=== PATIENT | male | born 1985 | race Caucasian/White ===

== ENCOUNTER 2018-07-17 12:52 | Emergency (ER) | payer SELFPAY ==
[2018-07-17] MEDS ORDERED: 0.9 % SODIUM CHLORIDE 1,000 ML BAG IV ONE ×2 (14:33→15:49)
[2018-07-17 14:48] LABS: URINE APPEARANCE CLEAR; URINE BILIRUBIN MODERATE (NEGATIVE); URINE BLOOD NEGATIVE (NEGATIVE); URINE COLOR YELLOW; URINE GLUCOSE (UA) NEGATIVE (NEGATIVE); URINE KETONE 15 mg/dL (NEGATIVE); URINE LEUKOCYTE ESTERASE NEGATIVE (NEGATIVE); URINE NITRITE NEGATIVE (NEGATIVE); URINE UROBILINOGEN 0.2 E.U./dL (0.20 - 1.00)
[2018-07-17 14:49] LABS: HEMOGLOBIN 15.7 gm/dl (14.0-18.0); MEAN CELL VOLUME 84.9 fl (81-97); MEAN CORPUSCULAR HGB CONC 34.1 g/dl (32-36); MEAN PLATELET VOLUME 9.1 fl (7.4-10.4); PLATELET COUNT 328 K/uL (130-400); RED BLOOD COUNT 5.42 M/uL (4.40-5.70); RED CELL DISTRIBUTION WIDTH 13.9 % (11.5-14.5); WHITE BLOOD COUNT W/O DIFF 8.3 K/uL (4.2-12.2)
[2018-07-17 15:00] LABS: PLATELET ESTIMATE NORMAL (NORMAL)
[2018-07-17 15:03] LABS: BLOOD UREA NITROGEN 8 mg/dL (6-20)
[2018-07-17 15:04] LABS: EST GLOMERULAR FILTRATION RATE > 60 mL/min; TOTAL PROTEIN 7.3 g/dL (6.6-8.7)
[2018-07-17 15:06] LABS: GLUCOSE,RANDOM 82 mg/dL (74-109)
[2018-07-17 15:09] LABS: ALB/GLOB RATIO 1.6 (1.1-1.8); ALBUMIN 4.5 g/dL (4.0-5.0); ALKALINE PHOSPHATASE 85 U/L (40-129); ALT/SGPT 24 U/L (<41); AST/SGOT 30 U/L (10.0-50.0)
[2018-07-17 15:38] LABS: STOOL FOR POLYS NO WBC'S OBSERVED (NO WBC'S)
[2018-07-17 15:52] LABS: CRYPTOSPORIDIUM PARVUM ANTIGEN NOT DETECTED (NOT DETECT); GIARDIA LAMBLIA ANTIGEN DETECTED (NOT DETECT); ROTOVIRUS NOT DETECTED (NOT DETECT)
--- NOTE | 2018-07-17 16:17 | Emergency Department Record ---
History of Present Illness - General Chief complaint: Nausea, Vomiting, Diarrhea Stated complaint: DIARRHEA X7DAYS,VOMITING Time Seen by Provider: 07/17/18 14:24 Source: Patient Mode of Arrival: Ambulatory Limitations: No limitations - History of Present Illness Initial comments: pt has had intractable diarrhea for 7days, like water the last 3 days., about 20 times a day. he vomited 2 days ago but has no nausea now. MD complaint: Diarrhea, Nausea, Vomiting Onset/Timin -: Days(s) Description of Diarrhea: Green, Water Associated Abdominal Pain: No Associated Symptoms: Loss of appetite, Nausea/vomiting, Weakness - Related Data Home Medications Medication Instructions Recorded Confirmed Last Taken Omeprazole [Prilosec] 20 mg PO DAILY 07/17/18 07/17/18 07/16/18 Previous Rx's Medication Instructions Recorded Metronidazole [Flagyl] 500 mg PO BID #20 tablet 07/17/18 Allergies Allergy/AdvReac Type Severity Reaction Status Date / Time No Known Drug Allergies Allergy Verified 07/17/18 13:25 Travel Screening - Travel/Exposure Within Last 30 Days Have you traveled within the last 30 days?: No - Travel/Exposure Within Last Year Have you traveled outside the [place] in the last year?: No - Additonal Travel Details Have you been exposed to anyone with a communicable illness?: No Review of Systems Reviewed: No additional complaints except as noted below Constitutional: Reports: As per HPI. Denies: Chills, Fever, Malaise, Night sweats, Weakness, Weight change Eyes: Reports: As per HPI. Denies: Eye discharge, Eye pain, Photophobia, Vision change ENT: Reports: As per HPI. Denies: Congestion, Dental pain, Ear pain, Epistaxis , Hearing loss, Throat pain Respiratory: Reports: As per HPI. Denies: Cough, Dyspnea, Hemoptysis, Stridor, Wheezes Cardiovascular: Reports: As per HPI. Denies: Arrhythmia, Chest pain, Dyspnea on exertion, Edema, Murmurs, Orthopnea, Palpitations, Paroxysmal nocturnal dyspnea, Rheumatic Fever, Syncope Endocrine: Reports: As per HPI. Denies: Fatigue, Heat or cold intolerance, Polydipsia, Polyuria Gastrointestinal: Reports: As per HPI. Denies: Abdominal pain, Constipation, Diarrhea, Hematemesis, Hematochezia, Melena, Nausea, Vomiting Genitourinary: Reports: As per HPI. Denies: Dysuria, Frequency, Hematuria, Incontinence, Retention, Testicular pain, Testicular mass, Urgency Musculoskeletal: Reports: As per HPI. Denies: Arthralgia, Back pain, Gout, Joint swelling, Myalgia, Neck pain Skin: Reports: As per HPI. Denies: Bruising, Change in color, Change in hair/ nails, Lesions, Pruritus, Rash Neurological: Reports: As per HPI. Denies: Abnormal gait, Confusion, Headache, Numbness, Paresthesias, Seizure, Tingling, Tremors, Vertigo, Weakness Psychiatric: Reports: As per HPI. Denies: Anxiety, Auditory hallucinations, Depression, Homicidal thoughts, Suicidal thoughts, Visual hallucinations Hematological/Lymphatic: Reports: As per HPI. Denies: Anemia, Blood Clots, Easy bleeding, Easy bruising, Swollen glands Past Medical History - SOCIAL HISTORY Smoking Status: Current every day smoker Alcohol Use: Heavy Alcohol Use Comment: 8-10 serving shots whiskey daily Drug Use: Occasional Drug Use Detail:: Marijuana - RESPIRATORY Hx Respiratory Disorders: Yes Hx Bronchitis: Yes - CARDIOVASCULAR Hx Cardio Disorders: No - NEURO Hx Neuro Disorders: No - GI Hx GI Disorders: Yes Hx Reflux: Yes - Hx Genitourinary Disorders: No - ENDOCRINE Hx Endocrine Disorders: No - MUSCULOSKELETAL Hx Musculoskeletal Disorders: No - PSYCH Hx Psych Problems: No - HEMATOLOGY/ONCOLOGY Hx Hematology/Oncology Disorders: No Family Medical History Any Significant Family History?: No Physical Exam - General General Appearance: Alert, Oriented x3, Cooperative, Mild distress - Head Head exam: Normal inspection - Eye Eye exam: Normal appearance, PERRL, EOMI Pupils: Normal accommodation - ENT ENT exam: Normal exam, Mucous membranes moist, Normal external ear exam, Normal orophraynx Ear exam: Normal external inspection. negative: External canal tenderness Nasal Exam: Normal inspection. negative: Discharge, Sinus tenderness Mouth exam: Normal external inspection, Tongue normal Teeth exam: Normal inspection. negative: Dental caries Throat exam: Normal inspection. negative: Tonsillar erythema, Tonsillar exudate - Neck Neck exam: Normal inspection, Full ROM. negative: Tenderness - Respiratory Respiratory exam: Normal lung sounds bilaterally. negative: Respiratory distress - Cardiovascular Cardiovascular Exam: Regular rate, Normal rhythm, Normal heart sounds - GI/Abdominal GI/Abdominal exam: Soft, Normal bowel sounds, Hyperactive bowel sounds. negative: Tenderness - Rectal Rectal exam: Deferred - exam: Deferred - Extremities Extremities exam: Normal inspection, Full ROM, Normal capillary refill. negative: Tenderness - Back Back exam: Reports: Normal inspection, Full ROM. Denies: Muscle spasm, Rash noted, Tenderness - Neurological Neurological exam: Alert, CN II-XII intact, Normal gait, Oriented X3 - Psychiatric Psychiatric exam: Normal affect, Normal mood - Skin Skin exam: Dry, Intact, Normal color, Warm Course Vital Signs 07/17/18 07/17/18 13:17 15:54 Temperature 97.6 F Pulse Rate 88 Pulse Rate [ 72 Pulse Ox Probe] Respiratory 16 16 Rate Blood Pressure 126/98 Blood Pressure 117/75 [Right Arm] Pulse Ox 94 L 99 Medical Decision Making - Lab Data Result diagrams: 07/17/18 14:30 07/17/18 14:30 Lab Results 07/17/18 07/17/18 07/17/18 Range/Units 14:30 14:30 14:30 WBC 8.3 (4.2-12.2) K/uL RBC 5.42 (4.40-5.70) M/uL Hgb 15.7 (14.0-18.0) gm/dl Hct 46.0 (42.0-52.0) % MCV 84.9 (81-97) fl MCH 29.0 (27-33) pg MCHC 34.1 (32-36) g/dl RDW 13.9 (11.5-14.5) % Plt Count 328 (130-400) K/uL MPV 9.1 (7.4-10.4) fl Neutrophils % 71.0 (47-80) % Eosinophils % Not Reportable Basophils % Not Reportable Lymphocytes 19.0 (16-45) % Monocytes 10.0 H (0-9) % Platelet Estimate Normal (NORMAL) RBC Morphology Normal Sodium 133 L (136-145) mmol/L Potassium 3.9 (3.4-4.5) mmol/L Chloride 90 L (98-107) mmol/L Carbon Dioxide 27.0 (22-29) mmol/L Anion Gap 16.0 (7-16) BUN 8 (6-20) mg/dL Creatinine 1.0 (0.7-1.2) mg/dL Estimated GFR > 60 mL/min Random Glucose 82 (74-109) mg/dL Calcium 8.9 (8.6-10.0) mg/dL Total Bilirubin 0.40 (0.2-1.0) mg/dL AST 30 (10.0-50.0) U/L ALT 24 (<41) U/L Alkaline Phosphatase 85 (40-129) U/L Total Protein 7.3 (6.6-8.7) g/dL Albumin 4.5 (4.0-5.0) g/dL Globulin 2.8 (1.4-4.8) gm/dL Albumin/Globulin Ratio 1.6 (1.1-1.8) Urine Color Yellow Urine Appearance Clear Urine pH 6.0 (5.0-8.0) Ur Specific Jeffrey 1.020 (1.002-1.030) Urine Protein 30 mg/dl H (NEGATIVE) Urine Glucose (UA) Negative (NEGATIVE) Urine Ketones 15 mg/dl H (NEGATIVE) Urine Blood Negative (NEGATIVE) Urine Nitrite Negative (NEGATIVE) Urine Bilirubin Moderate H (NEGATIVE) Urine Urobilinogen 0.2 (0.20 - 1.00) E.U./dL Ur Leukocyte Esterase Negative (NEGATIVE) Stool Occult Blood Negative (NEGATIVE) Stool for White Cells No wbc's observed (NO WBC'S) Rotavirus Antigen (NOT DETECT) Cryptosporid parvum Ag (NOT DETECT) Giardia lamblia Ag (NOT DETECT) 07/17/18 Range/Units 14:30 WBC (4.2-12.2) K/uL RBC (4.40-5.70) M/uL Hgb (14.0-18.0) gm/dl Hct (42.0-52.0) % MCV (81-97) fl MCH (27-33) pg MCHC (32-36) g/dl RDW (11.5-14.5) % Plt Count (130-400) K/uL MPV (7.4-10.4) fl Neutrophils % (47-80) % Eosinophils % Basophils % Lymphocytes (16-45) % Monocytes (0-9) % Platelet Estimate (NORMAL) RBC Morphology Sodium (136-145) mmol/L Potassium (3.4-4.5) mmol/L Chloride (98-107) mmol/L Carbon Dioxide (22-29) mmol/L Anion Gap (7-16) BUN (6-20) mg/dL Creatinine (0.7-1.2) mg/dL Estimated GFR mL/min Random Glucose (74-109) mg/dL Calcium (8.6-10.0) mg/dL Total Bilirubin (0.2-1.0) mg/dL AST (10.0-50.0) U/L ALT (<41) U/L Alkaline Phosphatase (40-129) U/L Total Protein (6.6-8.7) g/dL Albumin (4.0-5.0) g/dL Globulin (1.4-4.8) gm/dL Albumin/Globulin Ratio (1.1-1.8) Urine Color Urine Appearance Urine pH (5.0-8.0) Ur Specific Jeffrey (1.002-1.030) Urine Protein (NEGATIVE) Urine Glucose (UA) (NEGATIVE) Urine Ketones (NEGATIVE) Urine Blood (NEGATIVE) Urine Nitrite (NEGATIVE) Urine Bilirubin (NEGATIVE) Urine Urobilinogen (0.20 - 1.00) E.U./dL Ur Leukocyte Esterase (NEGATIVE) Stool Occult Blood (NEGATIVE) Stool for White Cells (NO WBC'S) Rotavirus Antigen Not detected (NOT DETECT) Cryptosporid parvum Ag Not detected (NOT DETECT) Giardia lamblia Ag Detected H (NOT DETECT) Disposition Disposition: Discharge Clinical Impression: Giardia lamblia infestation Disposition: Home, Self-Care Condition: (1) Good Instructions: Giardiasis (ED) Additional Instructions: follow up with family doctor. return sooner if worse. push fluids. Prescriptions: Metronidazole [Flagyl] 500 mg PO BID #20 tablet Forms: Patient Portal Access, Return to Work/School Quality - Quality Measures Quality Measures: N/A - Blood Pressure Screening Does Patient Have Any of the Following: No Blood Pressure Classification: Hypertensive Reading Systolic Measurement: 126 Diastolic Measurement: 98 Screening for High Blood Pressure: < Pre-Hypertensive BP, F/U Documented > [ G8950] Pre-Hypertensive Follow-up Interventions: Follow-up with rescreen every year.
[2018-07-17 16:40] LABS: MOLECULAR C DIFF TOXIN SCREEN NOT DETECTED (NOT DETECT)
[2018-07-17] MEDS ORDERED: METRONIDAZOLE 250 MG TABLET PO ONE (17:05)
== END 2018-07-17 17:20 | disposition home or self-care (01) ==
LOC: ER 12:52
DX: A07.1 Giardiasis [lambliasis] (principal); R11.2 Nausea with vomiting, unspecified; R53.1 Weakness; F17.210 Nicotine dependence, cigarettes, uncomplicated
CPT/HCPCS: 80053; 81003; 82272; 85027; 87329; 87425; 87427; 87493; 89055; 96360; 96361; 99284; J7030

== ENCOUNTER 2019-04-21 22:46 | Emergency (ER) | payer SELFPAY ==
--- NOTE | 2019-04-21 23:05 | Emergency Department Record ---
History of Present Illness - General Chief Complaint: Neck Injury/Pain Stated Complaint: STIFF NECK NOT FEELING WELL Time Seen by Provider: 04/21/19 23:00 Source: Patient Mode of Arrival: Ambulatory Limitations: No limitations - History of Present Illness Initial Comments: 33 yo male presents to ED for evaluation of "chest pain for weeks", denies any precipitating factors, reports "nothing makes it better". Patient denies fevers, chills, or recent illness. Patient does report that he "smokes and drinks a lot", denies health problems at his baseline. Patient denies cough or fever symptoms. MD Complaint: Other Onset/Timin -: Week(s) Place: Home Radiation: Chest Severity scale (1-10): 1 Quality: Aching Consistency: Constant Improves With: None Worsens With: None Associated Symptoms: None Treatments Prior to Arrival: None - Related Data Allergies Allergy/AdvReac Type Severity Reaction Status Date / Time No Known Drug Allergies Allergy Verified 07/17/18 13:25 Travel Screening - Travel/Exposure Within Last 30 Days Have you traveled within the last 30 days?: No Review of Systems Constitutional: Denies: Chills, Fever, Malaise, Night sweats Eyes: Denies: Eye discharge, Eye pain ENT: Denies: Congestion, Ear pain, Epistaxis Respiratory: Denies: Cough, Dyspnea Cardiovascular: Reports: Chest pain. Denies: Dyspnea on exertion Endocrine: Denies: Fatigue, Heat or cold intolerance Gastrointestinal: Denies: Abdominal pain, Nausea, Vomiting Genitourinary: Denies: Incontinence, Retention Musculoskeletal: Reports: Neck pain. Denies: Arthralgia, Back pain, Gout, Joint swelling Skin: Denies: Bruising, Change in color Neurological: Denies: Abnormal gait, Confusion, Headache, Seizure Psychiatric: Denies: Anxiety Hematological/Lymphatic: Denies: Anemia, Blood Clots Past Medical History - SOCIAL HISTORY Smoking Status: Current every day smoker Alcohol Use: Heavy Alcohol Use Comment: 12 drinks a day Drug Use: None - RESPIRATORY Hx Respiratory Disorders: Yes Hx Bronchitis: Yes - CARDIOVASCULAR Hx Cardio Disorders: No - NEURO Hx Neuro Disorders: No - GI Hx GI Disorders: Yes Hx Reflux: Yes - Hx Genitourinary Disorders: No - ENDOCRINE Hx Endocrine Disorders: No - MUSCULOSKELETAL Hx Musculoskeletal Disorders: No - PSYCH Hx Psych Problems: No - HEMATOLOGY/ONCOLOGY Hx Hematology/Oncology Disorders: No Family Medical History Any Significant Family History?: No Physical Exam - General General Appearance: Alert, Oriented x3, Cooperative, Other (Flat affect on examination, does smell of alcohol on exam as well.) Limitations: No limitations - Head Head exam: Atraumatic, Normocephalic, Normal inspection Head exam detail: negative: Abrasion, Contusion, Erazo's sign, General tenderness, Hematoma, Laceration - Eye Eye exam: Normal appearance. negative: Conjunctival injection, Periorbital swelling, Periorbital tenderness, Scleral icterus - ENT Ear exam: negative: Auricular hematoma, Auricular trauma Nasal Exam: negative: Active bleeding, Discharge, Dried blood, Foreign body Mouth exam: negative: Drooling, Laceration, Muffled voice, Tongue elevation - Neck Neck exam: Normal inspection. negative: Meningismus, Tenderness - Respiratory Respiratory exam: Normal lung sounds bilaterally. negative: Rales, Respiratory distress, Rhonchi, Stridor - Cardiovascular Cardiovascular Exam: Regular rate, Normal rhythm, Normal heart sounds - GI/Abdominal GI/Abdominal exam: Soft. negative: Organomegaly, Rebound, Rigid, Tenderness - Rectal Rectal exam: Deferred - exam: Deferred - Extremities Extremities exam: Normal inspection. negative: Pedal edema, Tenderness - Back Back exam: Denies: CVA tenderness (R), CVA tenderness (L) - Neurological Neurological exam: Alert, Normal gait, Oriented X3 - Psychiatric Psychiatric exam: Flat affect - Skin Skin exam: Normal color. negative: Abrasion Type of lesion: negative: abrasion Course Vital Signs 04/21/19 22:54 Temperature 97.6 F Pulse Rate [ 81 Left] Respiratory 16 Rate Blood Pressure 133/86 [Left Arm] Pulse Ox 99 - Reevaluation(s) Reevaluation #1: 04/21/19 23:16 EKG: NSR 82 Normal axis, normal intervals No acute ST-T wave changes Reevaluation #2: 04/21/19 23:37 Laboratory studies were reviewed and are grossly unremarkable for an acute process except for elevated alcohol level. Patient was updated on all results, reports that his symptoms "are probably from stress". Counseled the patient re: alcohol use, appears stable for discharge at this time with family members at the bedside. Medical Decision Making - Lab Data Result diagrams: 04/21/19 23:07 04/21/19 23:07 Disposition Disposition: Discharge Clinical Impression: Non-cardiac chest pain Alcohol intoxication Qualifiers: Complication of substance-induced condition: uncomplicated Qualified Code(s): F10.920 - Alcohol use, unspecified with intoxication, uncomplicated Disposition: Home, Self-Care Condition: (2) Stable Instructions: Chest Pain (ED) Additional Instructions: Return to ED if your symptoms worsen or if you have any concerns. Alcohol in moderation. Follow-up with your family doctor in 3-5 days as directed. Forms: Patient Portal Access Time of Disposition: 23:42 Quality - Quality Measures Quality Measures: N/A - Blood Pressure Screening Does Patient Have Any of the Following: No Blood Pressure Classification: Pre-Hypertensive BP Reading Systolic Measurement: 133 Diastolic Measurement: 86 Screening for High Blood Pressure: < Pre-Hypertensive BP, F/U Documented > [G8950] Pre-Hypertensive Follow-up Interventions: Referral to alternative/primary care provider.
[2019-04-21 23:13] LABS: ABSOLUTE NEUTROPHIL COUNT 1.26; HEMATOCRIT 38.8 % (42.0-52.0); MEAN CELL VOLUME 86.2 fl (81-97); MEAN CORPUSCULAR HEMOGLOBIN 28.8 pg (27-33); MEAN CORPUSCULAR HGB CONC 33.5 g/dl (32-36); MEAN PLATELET VOLUME 8.4 fl (7.4-10.4); PLATELET COUNT 239 K/uL (130-400); RED CELL DISTRIBUTION WIDTH 13.7 % (11.5-14.5); WHITE BLOOD COUNT W/O DIFF 5.4 K/uL (4.2-12.2)
[2019-04-21 23:24] LABS: INR 1.1; PROTHROMBIN TIME (PATIENT) 10.7 SECONDS (9.5-12.1)
[2019-04-21 23:26] LABS: BLOOD UREA NITROGEN 7 mg/dL (6-20); CREATININE 0.7 mg/dL (0.7-1.2); EST GLOMERULAR FILTRATION RATE > 60 mL/min
[2019-04-21 23:27] LABS: ALCOHOL 0.263 g/dL (0-0.010); TOTAL PROTEIN 6.2 g/dL (6.6-8.7)
[2019-04-21 23:29] LABS: GLUCOSE,RANDOM 113 mg/dL (74-109)
[2019-04-21 23:31] LABS: ALT/SGPT 19 U/L (<41); AST/SGOT 31 U/L (10.0-50.0)
[2019-04-21 23:32] LABS: ALBUMIN 4.1 g/dL (4.0-5.0); ALKALINE PHOSPHATASE 61 U/L (40-129)
== END 2019-04-22 00:01 | disposition home or self-care (01) ==
LOC: ER 22:46
DX: R07.89 Other chest pain (principal); M43.6 Torticollis; F10.920 Alcohol use, unspecified with intoxication, uncomplicated; F17.210 Nicotine dependence, cigarettes, uncomplicated; Y90.7 Blood alcohol level of 200-239 mg/100 ml
CPT/HCPCS: 99284 ×2; 85610; 80053; 84484; 85027; 93005; 93010; G0480; 80320

== ENCOUNTER 2019-12-12 17:01 | Emergency (ER) | payer SELFPAY ==
[2019-12-12] MEDS ORDERED: 0.9 % SODIUM CHLORIDE 1,000 ML BAG IV ONE (17:15)
--- NOTE | 2019-12-12 17:22 | Emergency Department Record ---
History of Present Illness <Carol Staples - Last Filed: 12/12/19 19:14> - General Source: Patient Mode of Arrival: Ambulatory Limitations: No limitations - History of Present Illness Initial comments: 34 yo male presents with right sided pain. He was in the kitchen at home and fell into the counter. He states his brother's girlfriend had recently. He was consoling his brother. His brother is much bigger than he is. His brother accidentally bumped into him causing him to loose balance. He fell into the counter. He has pain over the right side and right lower ribs. He did not his his head. No neck pain. No shortness of breath. He admits to daily drinking. No history of stopping or current desire to stop. No other recent illness. Onset/Timin -: Hour(s) History of Same: No -: Yes Myalgia Quality: Aching Consistency: Constant Improves with: Nothing Worsens with: Nothing Associated Symptoms: Denies other symptoms <LYNNE KOEHLER - Last Filed: 12/13/19 23:01> - General Chief complaint: Pain Stated complaint: RT SIDE RIB PAIN Time Seen by Provider: 12/12/19 17:11 - Related Data Allergies Allergy/AdvReac Type Severity Reaction Status Date / Time No Known Drug Allergies Allergy Verified 12/12/19 17:07 Travel Screening - Travel/Exposure Within Last 30 Days Have you traveled within the last 30 days?: No <LYNNE KOEHLER - Last Filed: 12/13/19 23:01> Review of Systems Constitutional: Denies: Chills, Fever, Malaise, Weakness Eyes: Denies: Eye discharge ENT: Denies: Congestion, Throat pain Respiratory: Denies: Cough, Dyspnea, Hemoptysis, Wheezes Cardiovascular: Reports: Chest pain. Denies: Edema, Palpitations, Syncope Endocrine: Denies: Fatigue, Polydipsia, Polyuria Gastrointestinal: Reports: Abdominal pain. Denies: Diarrhea, Nausea, Vomiting Genitourinary: Denies: Dysuria, Frequency, Hematuria Musculoskeletal: Reports: Back pain. Denies: Arthralgia, Myalgia, Neck pain Skin: Denies: Bruising, Change in color, Rash Neurological: Denies: Headache Psychiatric: Denies: Anxiety Hematological/Lymphatic: Denies: Easy bleeding, Easy bruising <LYNNE KOEHLER - Last Filed: 12/13/19 23:01> Past Medical History - SOCIAL HISTORY Smoking Status: Current every day smoker Alcohol Use: Heavy Alcohol Use Comment: pt states 10-12 drinks a day Drug Use: None - RESPIRATORY Hx Respiratory Disorders: Yes Hx Bronchitis: Yes - CARDIOVASCULAR Hx Cardio Disorders: No - NEURO Hx Neuro Disorders: No - GI Hx GI Disorders: Yes Hx Reflux: Yes - Hx Genitourinary Disorders: No - ENDOCRINE Hx Endocrine Disorders: No - MUSCULOSKELETAL Hx Musculoskeletal Disorders: No - PSYCH Hx Psych Problems: No - HEMATOLOGY/ONCOLOGY Hx Hematology/Oncology Disorders: No <LYNNE KOEHLER - Last Filed: 12/13/19 23:01> Family Medical History Any Significant Family History?: No <LYNNE KOEHLER - Last Filed: 12/13/19 23:01> Physical Exam - General General Appearance: Alert, Oriented x3, Cooperative, No acute distress Limitations: No limitations - Head Head exam: Atraumatic, Normal inspection - Eye Eye exam: Normal appearance, PERRL. negative: Conjunctival injection, Scleral icterus - ENT ENT exam: Normal exam, Mucous membranes moist Ear exam: Normal external inspection Nasal Exam: Normal inspection Mouth exam: Normal external inspection - Neck Neck exam: Normal inspection, Full ROM. negative: Lymphadenopathy, Tenderness - Respiratory Respiratory exam: Normal lung sounds bilaterally, Chest wall tenderness. negative: Accessory muscle use, Decreased breath sounds, Prolonged expiratory, Respiratory distress, Rhonchi, Stridor, Wheezes - Cardiovascular Cardiovascular Exam: Normal rhythm, Normal heart sounds, Tachycardia Peripheral Pulses: 2+: Radial (R), Radial (L) - GI/Abdominal GI/Abdominal exam: Soft, Tenderness. negative: Distended, Guarding, Hypoactive bowel sounds, Rebound - Rectal Rectal exam: Deferred - exam: Deferred - Extremities Extremities exam: Normal inspection. negative: Pedal edema, Tenderness Image of Full Body: 1 - tenderness, no swelling or bruising 2 - tenderness right lower ribs and mild RUQ otherwise soft abdomen. - Back Back exam: Reports: CVA tenderness (R), Tenderness. Denies: CVA tenderness (L) - Neurological Neurological exam: Alert, Normal gait, Oriented X3. negative: Altered, Motor sensory deficit - Psychiatric Psychiatric exam: Normal affect, Normal mood. negative: Agitated, Anxious - Skin Skin exam: Dry, Intact, Normal color, Warm <LYNNE KOEHLER - Last Filed: 12/13/19 23:01> Course Vital Signs 12/12/19 12/12/19 17:05 18:11 Temperature 97.8 F Pulse Rate 116 H Pulse Rate [ 97 H Pulse Ox Probe] Respiratory 20 20 Rate Blood Pressure 137/92 Blood Pressure 132/84 [Left Arm] Pulse Ox 97 98 - Reevaluation(s) Reevaluation #2: 12/12/19 19:15 cts neg <Carol Staples - Last Filed: 12/12/19 19:14> Vital Signs 12/12/19 17:05 Temperature 97.8 F Pulse Rate 116 H Respiratory 20 Rate Blood Pressure 137/92 Pulse Ox 97 - Reevaluation(s) Reevaluation #1: 12/12/19 17:56 The labs results were reviewed There are no acute significant abnormalities of the CBC There are no acute significant abnormalities of the CMP 12/12/19 18:[address] scans are pending at this time The case was signed out to Dr Staples for review of the CT of the chest, abdomen and pelvis. <LYNNE KOEHLER - Last Filed: 12/13/19 23:01> Medical Decision Making - Lab Data Result diagrams: 12/12/19 17:20 12/12/19 17:20 Lab Results 12/12/19 12/12/19 12/12/19 Range/Units 17:20 17:20 17:20 WBC 4.4 (4.2-12.2) K/uL RBC 5.01 (4.40-5.70) M/uL Hgb 14.6 (14.0-18.0) gm/dl Hct 44.3 (42.0-52.0) % MCV 88.4 (81-97) fl MCH 29.1 (27-33) pg MCHC 33.0 (32-36) g/dl RDW 14.2 (11.5-14.5) % Plt Count 273 (130-400) K/uL MPV 9.3 (7.4-10.4) fl Gran % 40.6 L (47-80) % Lymphocytes % 49.2 H (16-45) % Monocytes % 9.5 H (0-9) % Eosinophils % 0.5 (0-6) % Basophils % 0.2 (0-6) % Absolute Neutrophils 1.80 PT 10.1 (9.5-12.1) SECONDS INR 1.0 APTT 27.3 (24.5-39.1) SECONDS Sodium 137 (136-145) mmol/L Potassium 3.8 (3.4-4.5) mmol/L Chloride 99 (98-107) mmol/L Carbon Dioxide 23.0 (22-29) mmol/L Anion Gap 15.0 (7-16) BUN 6 (6-20) mg/dL Creatinine 0.7 (0.7-1.2) mg/dL Estimated GFR > 60 mL/min Random Glucose 117 H (74-109) mg/dL Calcium 9.2 (8.6-10.0) mg/dL Total Bilirubin 0.20 (0.2-1.0) mg/dL AST 40 (10.0-50.0) U/L ALT 20 (<41) U/L Alkaline Phosphatase 61 (40-129) U/L Total Protein 7.4 (6.6-8.7) g/dL Albumin 4.8 (4.0-5.0) g/dL Globulin 2.6 (1.4-4.8) gm/dL Albumin/Globulin Ratio 1.8 (1.1-1.8) <Carol Staples - Last Filed: 12/12/19 19:14> - Lab Data Result diagrams: 12/12/19 17:20 12/12/19 17:20 <LYNNE KOEHLER - Last Filed: 12/13/19 23:01> Disposition Disposition: Discharge <Carol Staples - Last Filed: 12/12/19 19:14> Disposition: Discharge <LYNNE KOEHLER - Last Filed: 12/13/19 23:01> Clinical Impression: Contusion of rib on right side Qualifiers: Encounter type: initial encounter Qualified Code(s): S20.211A - Contusion of right front wall of thorax, initial encounter Disposition: Home, Self-Care Condition: (1) Good Instructions: Rib Contusion (ED) Additional Instructions: Call the numbers provided for a new family doctor Return to the ER for a recheck immediately if worse, any new concerns or questions Forms: Patient Portal Access Quality - Quality Measures Quality Measures: N/A - Blood Pressure Screening Does Patient Have Any of the Following: No Blood Pressure Classification: Hypertensive Reading Systolic Measurement: 137 Diastolic Measurement: 92 Screening for High Blood Pressure: < Pre-Hypertensive BP, F/U Documented > [G8950] Pre-Hypertensive Follow-up Interventions: Follow-up with rescreen every year. <Carol Staples - Last Filed: 12/12/19 19:14> - Blood Pressure Screening Does Patient Have Any of the Following: No Blood Pressure Classification: Hypertensive Reading Systolic Measurement: 137 Diastolic Measurement: 92 <LYNNE KOEHLER - Last Filed: 12/13/19 23:01>
[2019-12-12 17:33] LABS: BASO % 0.2 % (0-6); EOS % 0.5 % (0-6); GRAN % 40.6 % (47-80); HEMATOCRIT 44.3 % (42.0-52.0); HEMOGLOBIN 14.6 gm/dl (14.0-18.0); LYMPH % 49.2 % (16-45); MEAN CELL VOLUME 88.4 fl (81-97); MEAN CORPUSCULAR HEMOGLOBIN 29.1 pg (27-33); MEAN PLATELET VOLUME 9.3 fl (7.4-10.4); MONO % 9.5 % (0-9); PLATELET COUNT 273 K/uL (130-400); RED BLOOD COUNT 5.01 M/uL (4.40-5.70); RED CELL DISTRIBUTION WIDTH 14.2 % (11.5-14.5); WHITE BLOOD COUNT W/O DIFF 4.4 K/uL (4.2-12.2)
[2019-12-12 17:41] LABS: BLOOD UREA NITROGEN 6 mg/dL (6-20); CREATININE 0.7 mg/dL (0.7-1.2); EST GLOMERULAR FILTRATION RATE > 60 mL/min
[2019-12-12 17:42] LABS: TOTAL PROTEIN 7.4 g/dL (6.6-8.7)
[2019-12-12 17:44] LABS: GLUCOSE,RANDOM 117 mg/dL (74-109); PARTIAL THROMBOPLASTIN TIME 27.3 SECONDS (24.5-39.1); PROTHROMBIN TIME (PATIENT) 10.1 SECONDS (9.5-12.1)
[2019-12-12 17:46] LABS: ALT/SGPT 20 U/L (<41); AST/SGOT 40 U/L (10.0-50.0)
[2019-12-12 17:47] LABS: ALB/GLOB RATIO 1.8 (1.1-1.8); ALBUMIN 4.8 g/dL (4.0-5.0); ALKALINE PHOSPHATASE 61 U/L (40-129)
--- NOTE | 2019-12-12 19:03 | CT SCAN REPORT ---
EXAMINATION: CT Chest without IV Contrast EXAM DATE: 12/12/2019 6:33 PM TECHNIQUE: Standard protocol CT images of the chest were performed without intravenous contrast. Lac k of intravenous contrast does limit assessment of the vascular structures and soft tissues. Coronal and sagittal images were reconstructed. INDICATION: PAIN COMPARISON: None ENCOUNTER: Not applicable CHEST FINDINGS: Base of Neck & Axillae: There is no adenopathy. Mediastinum & Lucila: There is no mediastinal or hilar adenopathy. Cardiovascular: The heart has a normal size. There is no pericardial effusion. The thoracic aorta an d main pulmonary artery have a normal caliber. Tracheobronchial Structures: There is no bronchial wall thickening or bronchiectasis. Lung Parenchyma: The lungs are clear. Pleural Space: There are no pleural effusions. There is no pneumothorax. Upper Abdomen: Included portions of the upper abdomen are unremarkable. Contrast in renal collecting systems and proximal ureters from prior study Chest Wall & Musculoskeletal: No suspicious bone lesions. 3-D Imaging at an Independent Workstation: Not performed. Assessment of the soft tissues and vascular structures is overall limited on noncontrast imaging, IMPRESSION: No acute abnormality Dictated by: Jose Alfredo Rain MD on 12/12/2019 6:58 PM. .
--- NOTE | 2019-12-12 19:12 | CT SCAN REPORT ---
EXAMINATION: CT Abdomen and Pelvis with IV Contrast EXAM DATE: 12/12/2019 6:33 PM TECHNIQUE: CT imaging of the abdomen and pelvis was performed with intravenous contrast. Coronal and sagittal images were reconstructed. IV Contrast: The amount and type of contrast are recorded in the medical record. INDICATION: fall onto right side COMPARISON: None ENCOUNTER: Not applicable CT ABDOMEN AND PELVIS FINDINGS: Lung Bases: Included extent of the lung bases are clear. Hepatobiliary: The liver has a normal size with a smooth surface. The hepatic and portal veins appear patent. Pancreas: The pancreas is normal. Spleen: The spleen is not enlarged. Adrenals: The adrenal glands are normal. Kidneys, Ureters, & Bladder: Both kidneys have a normal size and there is no hydronephrosis. Both ur eters have a normal caliber and the urinary bladder is unremarkable. Gastrointestinal: The stomach and small bowel are normal with no obstruction or inflammation. Appendi x is normal. The large bowel is normal. Reproductive Organs: Unremarkable Lymphatic System: There is no adenopathy within the abdomen or pelvis. Vasculature: Normal caliber abdominal aorta. Peritoneum: No free fluid, free air, or inflammation Abdominal Wall & Musculoskeletal: No suspicious bone lesions. IMPRESSION: No acute findings within the abdomen or pelvis. Nonobstructed bowel. Normal appendix. No hydronephrosis bilaterally. Dictated by: Moira Evans MD on 12/12/2019 6:59 PM. .
== END 2019-12-12 19:25 | disposition home or self-care (01) ==
LOC: ER 17:01
DX: S20.211A Contusion of right front wall of thorax, initial encounter (principal); W01.198A Fall on same level from slipping, tripping and stumbling with subsequent striking against other object, initial encounter; Y92.000 Kitchen of unspecified non-institutional (private) residence as the place of occurrence of the external cause; F17.210 Nicotine dependence, cigarettes, uncomplicated
CPT/HCPCS: 71250; 74177; 80053; 85025; 85610; 85730; 99284; J7030